=== PATIENT | female | born 1965 | race African-American/Black ===

== ENCOUNTER 2017-06-21 03:46 | Emergency (ER) | payer OTHER ==
[~2017-06-21] VITALS: Ht 162.6 cm; Wt 121.1 kg
[2017-06-21 04:08] VITALS: BP 108/61
[2017-06-21] MEDS ORDERED: Sodium Polystyrene Sulfonate 15gm Powder ORAL ONE (04:15)
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
[2017-06-21] MEDS ORDERED: IBUPROFEN600 MG ORAL (04:48)
[2017-06-21 04:55] VITALS: BP 108/61
== END 2017-06-21 04:55 | disposition home or self-care (01) ==
LOC: EMR 04:36
DX: S39.012A Strain of muscle, fascia and tendon of lower back, initial encounter (principal); S16.1XXA Strain of muscle, fascia and tendon at neck level, initial encounter; W50.0XXA Accidental hit or strike by another person, initial encounter; Y93.9 Activity, unspecified; Y99.0 Civilian activity done for income or pay
CPT/HCPCS: 99283